=== PATIENT | male | born 1990 | race Caucasian/White ===

== ENCOUNTER 2017-10-12 20:13 | Emergency (ER) | payer BC ==
[2017-10-12 20:58] LABS: Bilirubin Moderate (Negative); Blood, Urine Large (Negative); Clarity Cloudy (Clear); Glucose, Urine (Dipstick) Negative (Negative); Leukocyte Negative (Negative); Nitrite Negative (Negative); Protein, Urine (Dipstick) > or equal to 300 mg/dL (Neg-Trace); Specific Gravity, Urine 1.025 (1.005-1.030); Urobilinogen 0.2 mg/dL (0.2-1.0); pH, Urine 5.5 (5.0-9.0)
[2017-10-12 21:00] LABS: RBC/HPF GREATER THAN 50-TNTC HPF (0-3); Squamous Epithelial 0-3 HPF (0-3); WBC/HPF 0-3 HPF (0-3)
[2017-10-12 21:01] LABS: Bacteria/HPF Rare-Few HPF (None Seen)
[2017-10-12] MEDS ORDERED: Ondansetron ODT 4 MG TAB ONE (21:30)
[2017-10-12] MEDS ORDERED: Morphine 4 MG/ML VIAL ONE (21:30)
[2017-10-12 22:02] LABS: Hemoglobin 14.8 g/dL (14.0-18.0); Lymphocytes 14 % (21-51); MDiff Complete? YES; Mean Corpuscular HGB CONC 36.9 g/dL (32.0-36.0); Mean Corpuscular Volume 81.4 fL (78.0-98.0); Monocytes 4 % (0-10); Neutrophil 82 % (42-75); PLT Morphology Comment Appears Adequate; Platelet Count 257 thou/uL (130-400); RBC Distribution Width 10.5 % (11.5-14.5); Red Blood Cell (RBC) Count 4.95 mill/uL (4.70-6.10)
[2017-10-12 22:04] LABS: Anion Gap 15 mmol/L (10-20); BUN (Urea Nitrogen) 6 mg/dL (8.9-20.6); Calc. Creatinine Clearance 0 mL/min (70-130); Calcium 9.1 mg/dL (7.8-10.44); Carbon Dioxide 24 mmol/L (22-29); Chloride 99 mmol/L (98-107); Estimated GFR-MDRD Greater than 90; Glucose 93 mg/dL (70-105); Potassium 3.5 mmol/L (3.5-5.1); Sodium 134 mmol/L (136-145)
--- NOTE | 2017-10-12 22:24 | CT ---
CT OF THE ABDOMEN AND PELVIS WITHOUT IV CONTRAST: 10/12/17 INDICATION: Left sided flank pain with hematuria. FINDINGS: There is severe left sided hydronephrosis and hydroureter. There are three separate stones within the distal left ureter. One is seen within the distal left ureter on image 63, series 2 measuring 2.2 mm . An additional is seen measuring 4 mm within the distal left ureter on image 65 of series 2. One is seen at the left UVJ measuring 6.2 mm. There is a 2.6 mm stone involving the superior pole of the right kidney. There are two separate 2 mm stones within the right mid kidney. There is a 4 mm stone within the right mid kidney. Unopacified liver, spleen, pancreas and adrenal glands are unremarkable. Rectum and perirectal soft tissues are unremarkable. Unopacified bowel is unremarkable. No definite acute osseous abnormality is evident. IMPRESSION: 1. Severe left hydronephrosis with three separate stones seen within the distal left renal collecting system. The largest is seen at the left UVJ measuring 6.2 mm. 2. Right nephrolithiasis. POS: BH
== END 2017-10-12 22:42 | disposition home or self-care (01) ==
LOC: SCSER 20:13
DX: N13.2 Hydronephrosis with renal and ureteral calculous obstruction (principal); F41.9 Anxiety disorder, unspecified; F32.9 Major depressive disorder, single episode, unspecified
CPT/HCPCS: 74176; 80048; 81003; 81015; 85025; 87086; 96361; 96374; J2270; Q0162

== ENCOUNTER 2018-08-27 15:17 | Emergency (ER) | payer BC, OTHER ==
[2018-08-27] MEDS ORDERED: Pantoprazole 40 MG VIAL ONE (15:42)
[2018-08-27] MEDS ORDERED: Ondansetron PF 4 MG/2 ML Vial ONE (15:42)
[2018-08-27 15:43] LABS: #Basophils 0.1 thou/uL (0.0-0.2); #Lymphocytes 1.6 thou/uL (1.20-3.40); #Monocytes 0.8 thou/uL (0.11-0.59); #Neutrophils 11.4 thou/uL (1.40-6.50); %Basophils 0.7 % (0.0-1.0); %Eosinophils 0.3 % (0.0-10.0); %Lymphocytes 11.6 % (21.0-51.0); %Monocytes 5.5 % (0.0-10.0); %Neutrophils 81.9 % (42.0-75.0); Hemoglobin 16.5 g/dL (14.0-18.0); Mean Corpuscular HGB CONC 34.7 g/dL (32.0-36.0); Mean Corpuscular Volume 86.7 fL (78.0-98.0); Mean Platelet Volume 6.7 fL (7.4-10.4); Platelet Count 294 thou/uL (130-400); RBC Distribution Width 11.4 % (11.5-14.5); Red Blood Cell (RBC) Count 5.49 mill/uL (4.70-6.10)
[2018-08-27 15:53] LABS: ALT (SGPT) 19 U/L (8-55); AST (SGOT) 17 U/L (5-34); Albumin 4.6 g/dL (3.5-5.0); Alkaline Phosphatase 84 U/L (40-150); Anion Gap 15 mmol/L (10-20); BUN (Urea Nitrogen) 11 mg/dL (8.9-20.6); Bilirubin, Total 1.2 mg/dL (0.2-1.2); Calc. Creatinine Clearance 0 mL/min (70-130); Calcium 9.6 mg/dL (7.8-10.44); Carbon Dioxide 26 mmol/L (22-29); Chloride 103 mmol/L (98-107); Estimated GFR-MDRD Greater than 90; Globulin 2.8 g/dL (2.4-3.5); Glucose 134 mg/dL (70-105); Lipase 101 U/L (8-78); Potassium 3.3 mmol/L (3.5-5.1); Protein, Total 7.4 g/dL (6.0-8.3); Sodium 141 mmol/L (136-145)
[2018-08-27] MEDS ORDERED: Morphine 4 MG/ML VIAL ONE (16:31)
[2018-08-27] MEDS ORDERED: Ketorolac Tromethamine 30 MG/ML VIAL ONE (16:31)
--- NOTE | 2018-08-27 17:00 | CT ---
CT ABDOMEN AND PELVIS WITH CONTRAST: 08/27/18 HISTORY: Right lower quadrant abdominal pain. COMPARISON: CTA stone protocol CT from 10/12/17. FINDINGS: Lung bases are clear. No pericardial effusion. Moderate right hydroureteronephrosis due to partially obstructing calculus proximal right ureter austyn uring 3 x 2 x 4 mm. This is distal to the ureteropelvic junction approximately 5.5 cm. No other right ureteral calculus is appreciated. There are three separate 2 x 2 mm calculi within the inferior inte rpolar and superior right renal collecting system. No left sided renal calculi are appreciated. No le ft hydroureteronephrosis. No calculi within the urinary bladder. The spleen, liver, pancreas unremarkable. The appendix is visualized and is normal. No dilated loops of large or small bowel. No retroperitoneal or periaortic adenopathy. No free intrap eritoneal gas. The aortoiliac contour is normal. No acute osseous abnormality. IMPRESSION: Moderate right hydroureteronephrosis due to a partially obstructing calculus proximal right ureter as described. POS: HOME
[2018-08-27 18:09] LABS: Bilirubin Negative (Negative); Blood, Urine Large (Negative); Clarity Slightly Cloudy (Clear); Glucose, Urine (Dipstick) Negative (Negative); Leukocyte Negative (Negative); Nitrite Negative (Negative); Protein, Urine (Dipstick) 30 mg/dL (Neg-Trace); Urobilinogen 0.2 mg/dL (Less than 2)
[2018-08-27 18:11] LABS: RBC/HPF Greater than 50 HPF (0-3)
[2018-08-27 18:12] LABS: Bacteria/HPF None Seen HPF (None Seen); Squamous Epithelial 0-3 HPF (0-3); WBC/HPF 0-3 HPF (0-3)
== END 2018-08-27 16:38 | disposition home or self-care (01) ==
LOC: SCSER 15:17
DX: N13.2 Hydronephrosis with renal and ureteral calculous obstruction (principal); F41.9 Anxiety disorder, unspecified; F32.9 Major depressive disorder, single episode, unspecified
CPT/HCPCS: 74177; 80053; 81003; 81015; 83690; 85025; 87086; 96361; 96372; 96374; 96375; C9113; J0500; J1885; J2270; J2405

== ENCOUNTER 2018-09-01 08:36 | Emergency (ER) | payer OTHER ==
[2018-09-01] MEDS ORDERED: Ondansetron PF 4 MG/2 ML Vial ONE (09:16)
[2018-09-01] MEDS ORDERED: Morphine 4 MG/ML VIAL ONE ×2 (09:16→10:38)
[2018-09-01 09:27] LABS: #Basophils 0.1 thou/uL (0.0-0.2); #Neutrophils 9.8 thou/uL (1.40-6.50); %Basophils 0.7 % (0.0-1.0); %Eosinophils 0.2 % (0.0-10.0); %Lymphocytes 8.6 % (21.0-51.0); %Monocytes 8.4 % (0.0-10.0); Hemoglobin 15.5 g/dL (14.0-18.0); Mean Corpuscular HGB CONC 34.6 g/dL (32.0-36.0); Mean Corpuscular Hemoglobin 30.3 pg (27.0-31.0); Mean Corpuscular Volume 87.8 fL (78.0-98.0); Mean Platelet Volume 7.1 fL (7.4-10.4); Platelet Count 265 thou/uL (130-400); RBC Distribution Width 11.3 % (11.5-14.5); Red Blood Cell (RBC) Count 5.12 mill/uL (4.70-6.10)
[2018-09-01 09:42] LABS: ALT (SGPT) 28 U/L (8-55); AST (SGOT) 28 U/L (5-34); Albumin 4.4 g/dL (3.5-5.0); Alkaline Phosphatase 71 U/L (40-150); Anion Gap 16 mmol/L (10-20); BUN (Urea Nitrogen) 10 mg/dL (8.9-20.6); Bilirubin, Total 1.3 mg/dL (0.2-1.2); Calc. Creatinine Clearance 0 mL/min (70-130); Calcium 9.8 mg/dL (7.8-10.44); Carbon Dioxide 27 mmol/L (22-29); Chloride 101 mmol/L (98-107); Estimated GFR-MDRD 63; Glucose 114 mg/dL (70-105); Lipase 13 U/L (8-78); Potassium 3.9 mmol/L (3.5-5.1); Protein, Total 7.4 g/dL (6.0-8.3); Sodium 140 mmol/L (136-145)
--- NOTE | 2018-09-01 09:42 | ULT ---
US Renal Bilateral STANDARD HISTORY: Right flank pain. COMPARISON: CT examination of 08/27/2018. FINDINGS: Real-time imaging of the right and left kidneys were performed. The right kidney measures 9 .5 cm, the left kidney 9.9 cm in size. Some moderate right-sided hydronephrosis is still present perhaps slightly diminished as compared to the previous CT study. The bladder is not fully distended, it is shat difficult to evaluate for ureteral jets. IMPRESSION: Mild to moderate right-sided hydronephrosis perhaps slightly improved as compared to the previous CT examination.
[2018-09-01 10:50] LABS: Bilirubin Small (Negative); Blood, Urine Large (Negative); Clarity Slightly Cloudy (Clear); Glucose, Urine (Dipstick) Negative (Negative); Leukocyte Negative (Negative); Nitrite Negative (Negative); Protein, Urine (Dipstick) 30 mg/dL (Neg-Trace)
[2018-09-01 10:52] LABS: Bacteria/HPF Rare-Few HPF (None Seen); RBC/HPF 21-50 HPF (0-3); Squamous Epithelial 0-3 HPF (0-3); WBC/HPF 0-3 HPF (0-3)
[2018-09-01 10:53] LABS: Mucous/LPF 1+ LPF (<2+)
== END 2018-09-01 12:29 | disposition home or self-care (01) ==
LOC: SCSER 08:36 → EDSTATUS 08:42 → SCSER 12:29
DX: N13.2 Hydronephrosis with renal and ureteral calculous obstruction (principal); F41.9 Anxiety disorder, unspecified; F32.9 Major depressive disorder, single episode, unspecified; Z79.899 Other long term (current) drug therapy
CPT/HCPCS: 76770; 80053; 81003; 81015; 83690; 85025; 96361; 96374; 96375; 96376; J2270; J2405